=== PATIENT | male | born 1990 | race Caucasian/White ===

== ENCOUNTER 2017-06-14 13:24 | Emergency (ER) | payer BC, OTHER ==
[2017-06-14 13:44] VITALS: BP 132/80
--- NOTE | 2017-06-14 13:58 | EDM.PDOC ---
ED HPI GENERAL MEDICAL PROBLEM - General Chief Complaint: Laceration Stated Complaint: Laceration to R 2nd digit Time Seen by Provider: 06/14/17 13:25 Source of Information: Reports: Patient History Limitations: Reports: No Limitations - History of Present Illness INITIAL COMMENTS - FREE TEXT/NARRATIVE: Patient was drilling when he lost control of drill the drill started spinning and caught the finger patient has a V-shaped laceration in the second finger 2 cm long V-shaped with exposure of the joint Onset: Today, Sudden Duration: Minutes: Location: Reports: Upper Extremity, Right Severity: Severe Improves with: Reports: Medication Worsens with: Reports: None Context: Reports: Trauma Associated Symptoms: Reports: No Other Symptoms Right 2-Index finger Pain Score (Numeric/FACES): 2 - Related Data Allergies Allergy/AdvReac Type Severity Reaction Status Date / Time No Known Allergies Allergy Verified 06/14/17 13:26 Home Meds: Home Meds Cephalexin [Keflex] 500 mg PO Q6HR #40 cap 06/14/17 [Rx] Social & Family History - Alcohol Use Days Per Week of Alcohol Use: 1 Number of Drinks Per Day: 2 Total Drinks Per Week: 2 - Recreational Drug Use Recreational Drug Use: No ED ROS GENERAL - Review of Systems Review Of Systems: See Below Constitutional: Reports: No Symptoms HEENT: Reports: No Symptoms Respiratory: Reports: No Symptoms Cardiovascular: Reports: No Symptoms Endocrine: Reports: No Symptoms GI/Abdominal: Reports: No Symptoms : Reports: No Symptoms Musculoskeletal: Reports: No Symptoms Skin: Reports: No Symptoms Neurological: Reports: No Symptoms Psychiatric: Reports: No Symptoms Hematologic/Lymphatic: Reports: No Symptoms Immunologic: Reports: No Symptoms ED EXAM, SKIN/RASH Exam: See Below Exam Limited By: No Limitations General Appearance: Alert, WD/WN, No Apparent Distress Ears: Normal External Exam, Normal Canal, Hearing Grossly Normal, Normal TMs Nose: Normal Inspection, Normal Mucosa, No Blood Throat/Mouth: Normal Inspection, Normal Lips, Normal Teeth, Normal Gums, Normal Oropharynx, Normal Voice, No Airway Compromise Head: Atraumatic, Normocephalic Neck: Normal Inspection, Supple, Non-Tender, Full Range of Motion Respiratory/Chest: No Respiratory Distress, Lungs Clear, Normal Breath Sounds, No Accessory Muscle Use, Chest Non-Tender Cardiovascular: Normal Peripheral Pulses, Regular Rate, Rhythm, No Edema, No Gallop, No JVD, No Murmur, No Rub GI/Abdominal: Normal Bowel Sounds, Soft, Non-Tender, No Organomegaly, No Distention, No Abnormal Bruit, No Mass (Male) Exam: No Hernia, Normal Inspection, Normal Prostate, Circumcised Rectal (Males) Exam: Normal Exam, Normal Rectal Tone, Prostate Normal Back Exam: Normal Inspection, Full Range of Motion, NT Extremities: Normal Range of Motion, Non-Tender, Normal Capillary Refill Neurological: Alert, Oriented, CN II-XII Intact, Normal Cognition, Normal Gait, Normal Reflexes, No Motor/Sensory Deficits Psychiatric: Normal Affect, Normal Mood Skin: Warm, Dry Lymphatic: No Adenopathy ED SKIN PROCEDURES - Laceration/Wound Repair rt second finger Appearance: Stellate, Mildly Contaminated Distal NVT: Neuro & Vascular Intact Anesthetic Type: Digital Local Anesthesia - Lidocaine (Xylocaine): 2% Plain Local Anesthetic Volume: 4cc Skin Prep: Chlorhexidine (Hibiciens), Providone-Iodine (Betadine) Exploration/Debridement/Repair: Wound Explored, Explored to Base, Minimal Debridement, Multiple Flaps Aligned Closed with: Sutures Suture Size: 4-0 # of Sutures: 10 (Patient is a 27-year-old who works at [employer] seen today after a traumatic accident at the factor patient was using a drill press when the drill caught him in the finger started wrapping a flap with irregular borders was developed by a drill press PIP joint right second finger at this time x-rays were obtained which reveal no fractures patient had a dislocation which was reduced tendons were explored appeared intact discussed with hand surgeon we went ahead and closed the by approximating the skin and he will see the hand surgeon Saturday appointments will be made at this time) Course - Vital Signs Last Recorded V/S: Last Vital Signs Temp 98.1 F 06/14/17 13:25 Pulse 75 06/14/17 13:25 Resp 16 06/14/17 13:25 BP 132/80 06/14/17 13:25 Pulse Ox 100 06/14/17 13:25 - Orders/Labs/Meds Orders: Active Orders 24 hr Category Date Time Status Fingers Second Digit Rt F6 [CR] Stat Exams 06/14/17 13:42 Taken Meds: Medications Discontinued Medications Generic Name Dose Route Start Last Admin Trade Name Freq PRN Reason Stop Dose Admin Lidocaine HCl Confirm 06/14/17 13:32 Xylocaine 2% Administered 06/14/17 13:33 Dose 10 ml .ROUTE .STK-MED ONE Lidocaine HCl Confirm 06/14/17 14:25 Xylocaine 2% Administered 06/14/17 14:26 Dose 10 ml .ROUTE .STK-MED ONE Departure - Departure Time of Disposition: 15:11 Disposition: Home, Self-Care 01 Condition: Good Clinical Impression: Laceration - Discharge Information Prescriptions: Cephalexin [Keflex] 500 mg PO Q6HR #40 cap Referrals: PCP,None [Primary Care Provider] - Forms: ED Department Discharge Care Plan Goals: Patient instructed to keep finger extended and not to flex a cast was put on his hand to keep her from flexing we also started him on Keflex 500 4 times a day for 10 days patient is to return if any consistent complications of concerns he was referred to Dr. Castanon at [facility] on appointment was made for him for Saturday - My Orders Last 24 Hours: My Active Orders 06/14/17 13:42 Fingers Second Digit Rt F6 [CR] Stat - Assessment/Plan Last 24 Hours: My Active Orders 06/14/17 13:42 Fingers Second Digit Rt F6 [CR] Stat
== END 2017-06-14 15:25 | disposition home or self-care (01) ==
LOC: LL.ED 13:24
DX: S61.210A Laceration without foreign body of right index finger without damage to nail, initial encounter (principal); W31.1XXA Contact with metalworking machines, initial encounter
CPT/HCPCS: 12001; 26770; 73140-F6; 99283

== ENCOUNTER 2017-09-15 00:08 | Emergency (ER) | payer BC, OTHER ==
--- NOTE | 2017-09-15 00:55 | EDM.PDOC ---
ED HPI GENERAL MEDICAL PROBLEM - General Chief Complaint: Chest Pain Stated Complaint: chest pain Time Seen by Provider: 09/15/17 00:20 Source of Information: Reports: Patient (120), Family History Limitations: Reports: No Limitations - History of Present Illness INITIAL COMMENTS - FREE TEXT/NARRATIVE: Patient is a 27-year-old who has been exercising all day doing sit ups and pushups and around 10 PM started doing the insanity workout. after doing insanity workout for a few minutes, patient noticed that he wasn't doing well, stopped and said he had chest pain, dizzinessand had multiple emesis. when he arrived he had chest pain but at the time that I arrived he was pain-free. EKG showed normal sinus rhythm, no ST elevations. troponins are negative. lactic acid increase to 3.1, this is probably secondary to muscle breakdown. Onset: Today, Sudden Duration: Minutes:, Improving Location: Reports: Chest Severity: Moderate Chest Pain Score (Numeric/FACES): 6 - Related Data Allergies Allergy/AdvReac Type Severity Reaction Status Date / Time No Known Allergies Allergy Verified 06/14/17 13:26 Home Meds: Home Meds . 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 Patient now has slight twitch in R hand. Social & Family History - Tobacco Use Smoking Status *Q: Never Smoker - Caffeine Use Caffeine Use: Reports: None - Alcohol Use Days Per Week of Alcohol Use: 1 Number of Drinks Per Day: 2 Total Drinks Per Week: 2 - Recreational Drug Use Recreational Drug Use: No ED ROS GENERAL - Review of Systems Review Of Systems: See Below Constitutional: Reports: No Symptoms HEENT: Reports: No Symptoms Respiratory: Reports: No Symptoms Cardiovascular: Reports: Chest Pain (reproduced with palpation) Endocrine: Reports: No Symptoms GI/Abdominal: Reports: No Symptoms : Reports: No Symptoms Musculoskeletal: Reports: No Symptoms Skin: Reports: No Symptoms Neurological: Reports: No Symptoms Psychiatric: Reports: No Symptoms Hematologic/Lymphatic: Reports: No Symptoms Immunologic: Reports: No Symptoms ED EXAM, GENERAL - Physical Exam Exam: See Below Ears: Normal External Exam, Normal Canal, Hearing Grossly Normal, Normal TMs Nose: Normal Inspection, Normal Mucosa, No Blood Throat/Mouth: Normal Inspection, Normal Lips, Normal Teeth, Normal Gums, Normal Oropharynx, Normal Voice, No Airway Compromise Head: Atraumatic, Normocephalic Neck: Normal Inspection, Supple, Non-Tender, Full Range of Motion Respiratory/Chest: No Respiratory Distress, Lungs Clear, Normal Breath Sounds, No Accessory Muscle Use, Chest Non-Tender Cardiovascular: Normal Peripheral Pulses, Regular Rate, Rhythm, No Edema, No Gallop, No JVD, No Murmur, No Rub GI/Abdominal: Normal Bowel Sounds, Soft, Non-Tender, No Organomegaly, No Distention, No Abnormal Bruit, No Mass (Male) Exam: Deferred Rectal (Males) Exam: Deferred Back Exam: Normal Inspection, Full Range of Motion, NT Extremities: Normal Inspection, Normal Range of Motion, Non-Tender, Normal Capillary Refill, No Pedal Edema Neurological: Alert, Oriented, CN II-XII Intact, Normal Cognition, Normal Gait, Normal Reflexes, No Motor/Sensory Deficits Psychiatric: Normal Affect, Normal Mood Skin Exam: Warm, Dry, Intact, Normal Color, No Rash Lymphatic: No Adenopathy Course - Vital Signs Last Recorded V/S: Last Vital Signs Temp 98.1 F 09/15/17 00:09 Pulse 62 09/15/17 03:30 Resp 17 09/15/17 03:30 BP 123/59 L 09/15/17 03:30 Pulse Ox 99 09/15/17 03:30 - Orders/Labs/Meds Labs: Laboratory Tests 09/15/17 09/15/17 Range/Units 00:24 02:28 Creatine Kinase 106 (26-308) U/L Troponin I 0.000 0.000 (0.000-0.056) ng/mL Meds: Medications Discontinued Medications Generic Name Dose Route Start Last Admin Trade Name Freq PRN Reason Stop Dose Admin Aspirin 324 mg 09/15/17 01:00 09/15/17 03:06 Aspirin PO 09/15/17 01:01 324 mg ONETIME ONE Administration Aspirin Confirm 09/15/17 03:04 09/15/17 03:05 Aspirin Administered 09/15/17 03:05 Not Given Dose 324 mg .ROUTE .STK-MED ONE Departure - Departure Time of Disposition: 03:00 Disposition: Home, Self-Care 01 Condition: Good Clinical Impression: Atypical chest pain - Discharge Information Referrals: PCP,None [Primary Care Provider] - Forms: ED Department Discharge
[2017-09-15] MEDS ORDERED: Aspirin 81 MG Tab.Chew PO ONE (01:00)
[2017-09-15] MEDS ORDERED: Aspirin 81 MG Tab.Chew ONE (03:04)
[2017-09-15 03:38] VITALS: BP 123/59
== END 2017-09-15 03:00 | disposition home or self-care (01) ==
LOC: LL.ED 00:08
DX: R07.89 Other chest pain (principal)
CPT/HCPCS: 36415; 71020; 82550; 84484; 93005; 99285; A9270